=== PATIENT | male | born 1995 | race Caucasian/White ===

== ENCOUNTER 2017-11-02 23:08 | Emergency (ER) | payer BC, OTHER ==
[2017-11-02] MEDS ORDERED: LIDOCAINE 1% 10 ML VIAL INJ ONE (23:22)
[2017-11-02 23:24] VITALS: O2SAT 99
--- NOTE | 2017-11-02 23:26 | ED.PDOC ---
History of Present Illness - General Chief Complaint: Upper Extremity Injury Stated Complaint: fish hook right thumb Time Seen by Provider: 11/02/17 23:25 Source: patient - History of Present Illness Initial Comments: Armaan Nelson 22 y/o male [place] fishing pole and hook accdentally stuck right thumb unable to pull it out. Occurred: just prior to arrival Pain - Upper Extremity: moderate: Hand, right Method of Injury: other - see hpi Improving Factors: rest Worsening Factors: movement Allergies/Adverse Reactions: Allergies NO KNOWN ALLERGY Allergy (Verified 11/03/17 00:16) Home Medications: Ambulatory Orders Amoxicillin [Amoxil] 1,000 mg PO BID #30 cap 11/03/17 Review of Systems - Review of Systems Constitutional: States: no symptoms reported EENTM: States: no symptoms reported Respiratory: States: no symptoms reported Cardiology: States: no symptoms reported Skin: States: see HPI All other Systems: Reviewed and Negative, No Change from Baseline Past Medical History (General) - Patient Medical History Hx Seizures: No Hx Asthma: No Surgical History: no surgical history - Vaccination History Immunizations Up to Date: Yes - Td Family Medical History - Family History Mother Family History: No Known Physical Exam - Physical Exam General Appearance: Alert, Comfortable, No apparent distress Eyes, Ears, Nose, Throat Exam: normal ENT inspection Neck: full range of motion, supple Cardiovascular/Respiratory: regular rate, rhythm, no M/R/G, normal peripheral pulses Abdominal Exam: non-tender, no organomegaly Back Exam: no CVA tenderness, no vertebral tenderness Elbow/Forearm Exam: normal inspection, non-tender, no evidence of injury Wrist Exam: normal inspection, no evidence of injury Hand Exam: soft tissue tenderness - with fish hook on right thumb Neuro/Tendon: normal sensation, normal motor functions, responds to pain Mental Status: alert, oriented x 3 Skin Exam: normal color, warm/dry Progress - Progress Progress: 11/02/17 23:32 Vital Signs - 8 hr 11/02/17 23:17 Temperature 98.3 F Pulse Rate [ 78 Left Arm] Respiratory 16 Rate Blood Pressure 122/76 [Left Arm] O2 Sat by Pulse 99 Oximetry Procedures - Foreign Body Removal Foreign Body Removal: fish hook - right thumbnail partial trimming fish hook embedded on nail bed then gradually pulled out cleanse with hibiclens repeat applied neosporin and sterile dressing Foreign Body Physician Comment:: Area cleanse with hibiclens then meatacarpal block done with lidocaine 1% Departure - Departure Clinical Impression: Fish hook injury of right thumb Qualifiers: Encounter type: initial encounter Qualified Code(s): S69.91XA - Unspecified injury of right wrist, hand and finger(s), initial encounter Foreign body of thumb, right Qualifiers: Encounter type: initial encounter Qualified Code(s): S60.351A - Superficial foreign body of right thumb, initial encounter Time of Disposition: 00:56 Disposition: Discharge to Home or Self Care Condition: Good Departure Forms: ED Discharge - Pt. Copy, Patient Portal Self Enrollment Instructions: DI for Removal of Foreign Body From Skin Referrals: Alireza Ellis III, MD [Primary Care Provider] - 1-2 Weeks Prescriptions: Amoxicillin [Amoxil] 1,000 mg PO BID #30 cap Home Medications: Ambulatory Orders Amoxicillin [Amoxil] 1,000 mg PO BID #30 cap 11/03/17 Additional Instructions: Removal of dressing 06 November 2017 May use water proof band aid until better; Keep wound dry;Return to ER as needed;May take Aleve(otc) 1-2 tablets 3 x a day for pain
[2017-11-02] MEDS ORDERED: SULFA/TRIMETH 800/160 (DS) TAB 1 EA TAB PO ONE (23:44)
[2017-11-02] MEDS ORDERED: ceFAZolin SODIUM 1 GM VIAL IM ONE (23:44)
--- NOTE | 2017-11-02 23:46 | RAD ---
2 VIEWS RIGHT HAND RADIOGRAPHIC SERIES. INDICATIONS: Facial embedded in the distal right thumb. COMPARISONS: None. FINDINGS: One of the 3 pronged fishing hooks is impacted in soft tissue of the distal right thumb. No fracture. IMPRESSION: Fishing hook foreign body in the distal right thumb without fracture. Electronically signed by: Yasmany Thompson MD 11/02/2017 11:45 PM CDT
[2017-11-02] MEDS ORDERED: TETANUS,DIPHTHERIA,PERTUSSIS 1 EA SYG IM ONE (23:57)
[2017-11-02] MEDS ORDERED: WATER FOR INJ 10 ML VIAL INJ ONE (23:58)
[2017-11-03] MEDS ORDERED: TETANUS,DIPHTHERIA,PERTUSSIS 1 EA SYG IM ONE (00:02)
[2017-11-03] MEDS ORDERED: CHLORHEXIDINE GLUCONATE 4 % 15 ML UD TOP ONE ×2 (00:25→00:48)
[2017-11-03] MEDS ORDERED: NEOMYCIN-BACITRACIN-POLYMYXIN 0.9 GM UD TOP ONE ×2 (00:41→00:48)
[2017-11-03] MEDS ORDERED: LIDOCAINE 1% 10 ML VIAL INJ ONE (00:49)
[2017-11-03 00:54] VITALS: BP 118/78; TEMP 97.8
[2017-11-03] MEDS ORDERED: HYDROCOD/APAP 7.5/325 (ER DISP) #3 TAB PO ONE (01:00)
== END 2017-11-03 01:07 | disposition home or self-care (01) ==
LOC: ER 23:08
DX: S60.351A Superficial foreign body of right thumb, initial encounter (principal); S69.91XA Unspecified injury of right wrist, hand and finger(s), initial encounter; Z23 Encounter for immunization; X58.XXXA Exposure to other specified factors, initial encounter; Y92.828 Other wilderness area as the place of occurrence of the external cause
CPT/HCPCS: 73120; 90471; 90715; A4216; J0690